=== PATIENT | male | born 1990 | race Two or more races ===

== ENCOUNTER → 2025-10-25 | Emergency (ER) | payer OTHER ==
[~2025-10-25] VITALS: Ht 180.3 cm; Wt 95.3 kg
[~2025-10-25] MED LIST: 0.9 % SODIUM CHLORIDE 500 ML IV STA; BACITRACIN-NEOMYCIN-POLYMYXIN 0.9 GM PACKET TOP ONE; CLEOCIN HCL300 MG PO; CLINDAMYCIN PHOSPHATE 150 MG/ML (300mg) IM STA; CLINDAMYCIN PHOSPHATE 150 MG/ML (300mg) ONE; DEXAMETHASONE SODIUM PHOSPHATE 4 MG/ML VIAL IM STA; DEXAMETHASONE SODIUM PHOSPHATE 4 MG/ML VIAL ONE; FAMOTIDINE/PF 20 MG/2 ML VIAL IV STA; FAMOTIDINE/PF 20 MG/2 ML VIAL ONE; HYDROGEN PEROXIDE 473 ML BOTTLE TOP ONE; KETO10TA2 PO; KETOROLAC TROMETHAMINE 15 MG VIAL IM STA; KETOROLAC TROMETHAMINE 30 MG VIAL ONE; ONDANSETRON HCL 2 MG/ML VIAL IV STA; ONDANSETRON HCL 2 MG/ML VIAL ONE; ZESTRIL30 MG PO
[2025-10-25 00:59] VITALS: BP 137/79; O2SAT 98
== END | disposition home or self-care (01) ==
LOC: ER 00:13
DX: S01.521A Laceration with foreign body of lip, initial encounter (principal); S89.82XA Other specified injuries of left lower leg, initial encounter; S89.81XA Other specified injuries of right lower leg, initial encounter; V00.831A Fall from motorized mobility scooter, initial encounter; Y93.I9 Activity, other involving external motion; Y92.413 State road as the place of occurrence of the external cause; Z88.1 Allergy status to other antibiotic agents; I10 Essential (primary) hypertension; M79.642 Pain in left hand; M79.641 Pain in right hand; Z88.2 Allergy status to sulfonamides; Z88.8 Allergy status to other drugs, medicaments and biological substances
CPT/HCPCS: 12013; 70450; 70480; 72125; 73130; 73564; 96365; 99285; J1100; J1885; J2405; J3490; J7030